=== PATIENT | female | born 1930 | race African-American/Black ===

== ENCOUNTER 2016-07-20 10:21 | Inpatient (IN) ==
[2016-07-20] MEDS ORDERED: SODIUM CHLORIDE 0.9% 500 ML IV STA (10:55)
--- NOTE | 2016-07-20 11:04 | Emergency Department Note ---
Murray Hemphill Mantricia, am scribing for, and in the presence of, Randolph Daley MD 11:02. Edi Hemphill Charles R, MD, personally performed the services described in this documentation, ascribed by Fidel Gao in my presence, and it is both accurate and complete . Arrival - Arrival Chief Complaint: Altered Mental Status Stated Complaint: Altered LOC ED Nursing Triage Note: Brought in by EMS c/o altered LOC-onset three days ago, worse today. Patient has been being treated for a UTI. Mode of Arrival: Stretcher Limitations: Altered Mental Status Source: Family (Daughter) Time Seen by Provider: 07/20/16 10:41 - History of Present Illness HPI Narrative: Pt is an 86 y/o black female arriving to ED by EMS with c/o AMS that onset a week ago. Daughter states that pt has been confused and nonresponsive for about a week now. She also states that pt falls asleep during conversation and is unable to wake up for more than a few seconds. Pt is being treated for a sever UTI and is still on antibiotics. Pt has a PMHx of dementia and brain hemorrhage but denies DM. Daughter reports that pt had a chest x-ray about a week ago and did not have fluid on her lungs; however, daughter reports thick yellow sputum when coughing. Pt's PCP is Dr. Gurrola. No other complaints were reported to ED. Onset (ago): week(s) Consistency: constant Severity: mild Date of Last Menstrual Period: menopause Allergies/Adverse Reactions: Allergies Allergy/AdvReac Type Severity Reaction Status Date / Time Sulfa (Sulfonamide Allergy Mild RASH Verified 05/27/14 04:47 Antibiotics) Home Medications: Home Medications Medication Instructions Recorded Confirmed Type Albuterol Inhaler [Proventil 2 puff INH TID 05/27/14 05/27/14 History Inhaler] Ca/D3/Mag/Zinc/Javad/Jamie/Mgbor 1 each PO DAILY 05/27/14 05/27/14 History [Caltrate 600+D3+Min Chew Tab] Cholecalciferol (Vitamin D3) 1,000 unit PO DAILY 05/27/14 05/27/14 History [Vitamin D3] Donepezil [Aricept] 10 mg PO BEDTIME 05/27/14 05/27/14 History Fluticasone 50 Mcg Nasal Oxbow 1 spray BOTH NARES BID 05/27/14 05/27/14 History [Flonase] Furosemide Tab [Lasix Tab] 20 mg PO QOTHER DAY 05/27/14 05/27/14 History Potassium Chloride [Klor-Con 8] 8 meq PO QOTHER DAY 05/27/14 05/27/14 History amLODIPine [Norvasc] 5 mg PO ONCE 05/27/14 05/27/14 History Albuterol Neb [Proventil Neb] 2.5 mg RESP TX RT QID neb 06/06/14 Rx Ziprasidone Cap [Geodon Cap] 20 mg PO BID capsule 06/06/14 Rx Review of System - Review of System 12 point system: reviewed and no additional remarkable complaints except as stated - Review of System Constitutional: Present: other (AMS for a week). Absent: chills, diaphoresis, fever Eyes: Absent: discharge, pain, redness Head/Ears/Nose/Throat: Absent: earache, epistaxis Respiratory: Absent: cough, respiratory distress, wheezing Cardiovascular: Absent: chest pain, dyspnea on exertion Gastrointestinal: Absent: abdominal pain, nausea, vomiting, diarrhea Genitourinary female: Absent: abnormal menses, dysuria Musculoskeletal: Absent: arm pain, back pain, leg pain, neck pain Skin: Absent: rash, lesions Neurological: Absent: headache, weakness Psychiatric: Absent: anxiety, depression Medical,Surgical,& Family Hx - Medical History Cardio: History of: Hypertension Neurology: History of: Dementia Endocrine: No history of: Diabetes Mellitus (NIDDM) Respiratory: History of: Respiratory Problems (former smoker) Gastrointestinal: History of: GERD - Social History Smoking Status: Former smoker Frequency of Alcohol Use: None Type of Drug Use: None Exam Vital Signs: Vital Signs Temperature 96.5 F L 07/20/16 10:30 Pulse Rate 64 07/20/16 10:30 Respiratory Rate 21 07/20/16 10:30 Blood Pressure 132/64 07/20/16 10:30 O2 Sat by Pulse Oximetry 98 07/20/16 10:30 - General General appearance: in no apparent distress, other (confused; slurred speech) - Head Head exam: Present: atraumatic, normocephalic, normal inspection, other (no facial droop features) - Eye Eye exam: Present: normal appearance, PERRL, EOMI - ENT ENT exam: Present: normal exam, normal oropharynx, mucous membranes moist, TM's normal bilaterally, normal external ear exam - Neck Neck exam: Present: normal inspection, full ROM, trachea midline. Absent: tenderness - Chest Chest inspection: Present: normal inspection, symmetric chest wall rise. Absent : tenderness - Respiratory Respiratory exam: Present: normal lung sounds bilaterally - Cardiovascular Cardiovascular exam: Present: regular rate, normal rhythm, normal heart sounds - Abdominal Exam Abdominal exam: Present: soft, normal bowel sounds. Absent: distention, tenderness, guarding, rebound - Extremities Exam Extremities exam: Present: full ROM, normal capillary refill, other (+2 LE edema bilat but more noticed on RLE). Absent: tenderness - Back Exam Back exam: Present: normal inspection, full ROM. Absent: tenderness - Neurological Exam Neurological exam: Present: alert, oriented X3, CN II-XII intact, reflexes normal - Psychiatric Psychiatric exam: Present: normal affect, normal mood - Skin Skin exam: Present: warm, dry, intact, normal color Course - Consultations Consultation #1: Hospitalist will admit patient Time: 12:53 Results - Labs CBC & BMP: 07/20/16 11:35 07/20/16 11:35 Lab Results: I have reviewed the patients labs Labs: Laboratory Tests 07/20/16 07/20/16 07/20/16 10:55 11:35 11:35 WBC 15.9 H MCV 85.6 L Neut % (Auto) 74.1 H Lymph % (Auto) 10.5 L Neut # (Auto) 11.8 H Eos # (Auto) 1.2 H Lymphocytes 11 L Sodium 147 H Chloride 110 H Anion Gap 16.2 H BUN 45 H Creatinine 1.30 H BUN/Creatinine Ratio 34.00 H Glucose 229 H Calculated Osmolality 310.4 H Magnesium 2.8 H Total Bilirubin 1.40 H AST 45 H ALT 65 H Alkaline Phosphatase 267 H Total Protein 4.6 L Albumin 1.9 L Albumin/Globulin Ratio 0.7 L Urine Urobilinogen 2.0 H - Diagnostic Findings Procedure: Chest x-ray: report reviewed by me (No acute cardiopulmonary process is identified. ), CT: report reviewed by me (Head: No acute intracranial abnormality demonstrated. Probable chronic microvascular ischemic change and volume loss. Interval placement of 2 doron holes within the right frontal calvarium with interval resolution of extra-axial hemorrhage. ) Disposition Clinical Impression: Fatigue, Altered mental status, Confused, Debilitated patient, Anorexia, Hypoalbuminemia, Dementia, Bronchitis, Leukocytosis Case discussed with: patient, patient's family Disposition: Still a Patient Condition: Stable Time of Disposition: 12:54
--- NOTE | 2016-07-20 11:13 | CT Report ---
CT head/brain wo con Indication: Mental status changes Comparison: CT brain dated June 20, 2016 Technique: Multiple axial tomographic images of the brain were obtained without the use of intravenous contrast. Findings: Moderate global volume loss. Marked periventricular and subcortical hypoattenuation noted which is nonspecific but consistent with chronic microvascular ischemic change. No acute intracranial hemorrhage or significant midline shift. Interval placement of 2 doron holes within the right frontal calvarium with interval resolution of extra-axial hemorrhage. Paranasal sinuses and mastoid air cells are clear. IMPRESSION: No acute intracranial abnormality demonstrated. Probable chronic microvascular ischemic change and volume loss. Interval placement of 2 doron holes within the right frontal calvarium with interval resolution of extra-axial hemorrhage. The CT exam was performed using one or more of the following dose reduction techniques: Automated exposure control, adjustment of the mA and/or kV according to patient size, or use of iterative reconstruction technique. PROCEDURE INTERPRETED AT [facility] DEPARTMENT OF RADIOLOGY Final Report Signed by: Dr Raul Ivory
--- NOTE | 2016-07-20 11:16 | XRay Report ---
Referring Physician: Randolph Daley Exam: XR chest 1V portable Date: July 20, 2016 at 11:05 AM Reason: Altered mental status Comparison: Chest one view portable June 06, 2014 Findings: The cardiac silhouette is upper normal in size. No focal consolidation, pneumothorax or pleural effusion is identified. No acute osseous process is seen. Impression: No acute cardiopulmonary process is identified. PROCEDURE INTERPRETED AT [facility] DEPARTMENT OF RADIOLOGY Final Report Signed by: Dr. Jesenia Heard
[2016-07-20 11:48] LABS: Basophils # 0.1 10*3/uL (0.0-0.2); Basophils % 0.4 % (0.0-0.8); Eosinophils # 1.2 10*3/uL (0.0-0.87); Eosinophils % 7.2 % (0.00-10.9); Hematocrit 39.2 VOL% (35.7-47.0); Hemoglobin 13.7 GM/DL (12.0-16.0); Immature Granulocytes % 5.3 %; Immature Granulocytes Absolute 0.84 #; Lymphocytes # 1.7 10*3/uL (1.4-4.0); Lymphocytes % 10.5 % (21.3-54.2); Mean Corpuscular HGB Conc 34.9 GM/DL (32-36); Mean Corpuscular Hemoglobin 30 PG (27-34); Mean Corpuscular Volume 85.6 FL (87-102); Mean Platelet Volume 11.2 FL (9.6-12.0); Monocytes # 0.4 10*3/uL (0.11-0.8); Monocytes % 2.5 % (1.7-12.7); Neutrophils # 11.8 10*3/uL (1.4-7.4); Neutrophils % 74.1 % (38.7-73.9); Platelet Count 181 T/CUMM (130-400); Red Blood Count 4.58 MC/CUMM (3.8-5.5); Red Cell Distribution Width 15.9 % (9.3-17.3); White Blood Count 15.9 T/CUMM (4-12)
[2016-07-20 11:57] LABS: INR 1.2; PT Patient Result 12.4 SECS
[2016-07-20 12:12] LABS: Band Neutrophils 2 % (0-10); Eosinophils 6 % (0-10); Hypochromasia 1+; Lymphocytes 11 % (20-55); Platelet Estimate Normal; Segmented Neutrophils 75 % (50-85); Total Cells Counted 100
[2016-07-20 12:19] LABS: Ammonia 12 UMOL/L (11-32)
[2016-07-20 12:22] LABS: Alanine Aminotransferase 65 U/L (13-56); Albumin 1.9 G/DL (3.4-5.0); Alkaline Phosphatase 267 U/L (45-117); Aspartate Amino Transferase 45 U/L (0-37); Blood Urea Nitrogen 45 MG/DL (7-18); Calcium 8.8 MG/DL (8.5-10.1); Glucose 229 MG/DL (74-106); Magnesium 2.8 MG/DL (1.8-2.4); Osmolality,Calculated 310.4 MOS/KG (273-304); Potassium 4.2 MMOL/L (3.5-5.1); Sodium 147 MMOL/L (136-145); Total Protein 4.6 G/DL (6.4-8.3); Troponin I Only < 0.015 NG/ML (0.00-0.045)
[2016-07-20 12:24] LABS: Amorphous Crystals,Urine Occasional /HPF (Few); Apearance,Urine Slightly Hazy (Clear); Bacteria,Urine Occasional /HPF (Few); Bilirubin,Urine Negative (Negative); Blood, Urine Negative (Negative); Glucose,Urine (UA) Negative (Negative); Ketones,Urine Negative (Negative); Nitrite,Urine Negative (Negative); Protein,Urine Negative; RBC,Urine 1 /HPF (0-4); Squamous Epithelial Cell,Urine Occasional /HPF (0-10); Urine Color Amber (Yellow); Urine Specific Gravity 1.015 (1.001-1.035); WBC,Urine 3 /HPF (0-6)
[2016-07-20] MEDS ORDERED: cefTRIAXone 1,000 MG in SODIUM CHLORIDE 0.9% 100 ML IV STA (12:54)
[2016-07-20 12:58] LABS: Sedimentation Rate-Westergren 66 MM/HR (0-30)
[2016-07-20] MEDS ORDERED: cefTRIAXone 1,000 MG VIAL ONE (13:18)
--- NOTE | 2016-07-20 14:30 | EKG Report ---
Stationary ECG Study [facility] ER Test Date: 07/20/2016 2:19:01 PM Pat Name: PIA YOON Department: Room: Gender: F Instrumentation Technician: EVERTON : 1930 Requested by: Randolph Morrison Order Number: [id number] Reading MD: JAKI BARTLETT Intervals [place] Rate: 65 P: 40 MO: 145 QRS: 17 QRSD: 78 T: 52 QT: 405 QTc: 417 Interpretive Statements SINUS RHYTHM WITH OCCASIONAL ECTOPIC PREMATURE COMPLEXES NONSPECIFIC T-WAVE ABNORMALITY Electronically Signed On 07-20-16 21:58:58 CDT by JAKI BARTLETT [email or web address]
[2016-07-20] MEDS ORDERED: ACETAMINOPHEN 325 MG TABLET PO PRN (14:32)
--- NOTE | 2016-07-20 16:07 | Hospitalist History & Physical ---
Assessment and Plan (1) Altered mental status Status: Acute Assessment and plan: Pt. admitted to monitored bed. Blood cultures pending. CT negative. Vit B12 ordered. TSH ordered. Ammonia normal. MRI in am after hydration. Current Visit: Yes (2) Hypoalbuminemia Status: Acute Assessment and plan: Consult dietary. Current Visit: Yes (3) Leukocytosis Status: Acute Assessment and plan: Start IV antibiotics (Rocephin and Vanc). Repeat labs in am. Blood cultures pending. UA negative. CXR unremarkable. Current Visit: Yes (4) Acute renal failure Status: Acute Assessment and plan: IVF at 75ml/ hr. Recheck labs in am. Avoid nephrotoxic agents. 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 Cortés is a 86 year old black female with a history of htn, subdural hematoma, pneumonia, and dementia that was brought into the ED via EMS for evaluation of altered mental status. Pt's daughter is at bedside and provides a history of her mother's current state. She states that her mother has been very lethargic for the last week and has become increasingly confused. Pt is also reported to fall asleep during conversation and not respond for several seconds. The patient was recently treated for cough and congestion as well as a severe UTI at the half-way and was still on antibiotics. Pt.'s daughter confirms thick green and yellow sputum production. Pt. is oriented only to self in ED. No other complaints noted at this time. The patient's case has been discussed with Dr. Greenfield and the patient will be admitted for further evaluation and treatment. Home Medications Medication Instructions Recorded Confirmed Type Donepezil [Aricept] 10 mg PO 199905/27/14 07/20/16 History Furosemide Tab [Lasix Tab] [place] [address]/27/14 07/20/16 History amLODIPine [Norvasc] 5 [place] 79905/27/14 07/20/16 History Acetaminophen Tab [Tylenol Tab] 650 mg PO Q4H PRN 07/20/16 07/20/16 History Albuterol Neb [Proventil Neb] 2.5 mg RESP TX Q4H PRN 07/20/16 07/20/16 History Calcium (Carb)/Vit D 600-400 [place] [address]/20/16 07/20/16 History [Caltrate 600 + D] Cetirizine Tab [ZyrTEC Tab] 10 mg PO 0807/20/16 07/20/16 History Memantine [Namenda] 10 mg PO BID@0800,159907/20/16 07/20/16 History Montelukast Tab [Singulair Tab] [place] [address]07/20/16 07/20/16 History Naproxen Sodium [Aleve] [place] [address]/20/16 07/20/16 History Nitrofurantoin Monohyd/M-Cryst 100 mg PO BID@0800,159907/20/16 07/20/16 History [Nitrofurantoin [place]-Mcr 100 mg] Pot[place] [address]/20/16 07/20/16 History guaiFENesin [Mucinex] 600 mg PO BID@0800,199907/20/16 07/20/16 History risperiDONE [Risperidone] 0.25 mg PO BID@0800,199907/20/16 07/20/16 History Allergies Allergy/AdvReac Type Severity Reaction Status Date / Time Sulfa (Sulfonamide Allergy Mild RASH Verified 05/27/14 04:47 Antibiotics) Medical,Surgical,& Family Hx - Medical History Cardio: History of: Hypertension Neurology: History of: Dementia Endocrine: No history of: Diabetes Mellitus (NIDDM) Respiratory: History of: Respiratory Problems (former smoker) Gastrointestinal: History of: GERD - Social History Smoking Status: Former smoker Frequency of Alcohol Use: None Type of Drug Use: None Marital Status: Lives With:: at half-way Functional capacity: wheelchair bound ROS unobtainable: due to mental status (pt's daughter was at bedside and provided information for patient) - Constitutional Constitutional: Present: daytime sleepiness, weakness - EENT Ears: Present: decreased hearing Nose, mouth and throat: Present: headache(s) - Cardiovascular Cardiovascular: Present: edema - Respiratory Respiratory: Present: cough, dyspnea on exertion - Gastrointestinal Gastrointestinal: Absent: abdominal pain - Neurological Neurological: Present: behavioral changes, confusion - Psychiatric Psychiatric: Present: confusion, memory loss Exam - Constitutional Vitals: Period Temp Pulse Resp BP Sys/Shannon Pulse Ox Last 24 Hr 96.5 F-96.5 F 62-64 18-21 132-132/64-64 98 General appearance: no acute distress - Head Head exam: Present: normal inspection, normocephalic - Eye Eye exam: Present: EOMI. Absent: periorbital swelling Pupils: Present: ADAMARIS. Absent: dilated - Respiratory Respiratory exam: Present: clear to auscultation bilaterally. Absent: wheezes - Cardiovascular Cardiovascular exam: Present: irregular rhythm. Absent: regular rate and rhythm - GI/Abdominal GI/Abdominal exam: Present: normal bowel sounds, soft. Absent: tenderness - Extremities Exam Extremities exam: Present: normal capillary refill, full ROM, edema - Neurological Exam Neurological exam: Present: altered. Absent: alert, oriented X3 - Psychiatric Psychiatric exam: Present: flat affect - Skin Skin exam: Present: normal color, warm, dry Results - Labs CBC & BMP: 07/20/16 11:35 07/20/16 11:35 Lab Results: I have reviewed the past 24 hour labs
[2016-07-20] MEDS ORDERED: VANCOMYCIN INJ 1,000 MG in SODIUM CHLORIDE 0.9% 250 ML IV STA (16:12)
[2016-07-20 16:14] LABS: Barbiturates Screen,Urine Negative (Negative); Benzodiazepines Screen,Urine Negative (Negative); Cannabinoid Screen,Urine Negative (Negative); Opiate Screen,Urine Negative (Negative); Phencyclidine Screen,Urine Negative (Negative)
[2016-07-20 17:01] LABS: Bilirubin,Direct 0.9 MG/DL (0.0-0.20); Bilirubin,Indirect 0.4 MG/DL (0.0-1.0); Bilirubin,Total 1.3 MG/DL (0.2-1.0); Total Protein 4.7 G/DL (6.4-8.3)
[2016-07-20] MEDS: DEXTROSE 5% NACL 0.45% 1,000 ML IV SCH (18:46)
--- NOTE | 2016-07-20 21:34 | Ultrasound Report ---
US venous doppler LE BI Indication: Lower extremity swelling and pain. Comparison: None. Technique: Using a transcutaneous probe, grayscale, spectral Doppler, and color Doppler images of the bilateral lower extremity venous structures were captured and stored. Grayscale images prior to and following compression were obtained. Interrogated venous structures include the bilateral common femoral vein, superficial femoral vein (proximal, mid, and distal), and popliteal vein. Findings: There is no evidence of thrombus within the interrogated venous structures. the interrogated venous segments demonstrate presence of both color flow and spectral flow. Impression: 1. No evidence of venous thrombosis. 07/20/2016 9:31 PM PROCEDURE INTERPRETED AT [facility] DEPARTMENT OF RADIOLOGY Final Report Signed by: Dr. Idris Monet
[2016-07-20] MEDS: cefTRIAXone 2,000 MG in SODIUM CHLORIDE 0.9% 100 ML IV SCH (23:49)
[2016-07-21 06:34] LABS: Calcium 8.2 MG/DL (8.5-10.1); Magnesium 2.5 MG/DL (1.8-2.4); Osmolality,Calculated 316.7 MOS/KG (273-304); Potassium 3.6 MMOL/L (3.5-5.1); Risk Ratio 10.63; Thyroid Stimulating Hormone 1.33 uIU/ml (0.358-3.74); VLDL CHOLESTEROL 41.4 MG/DL
[2016-07-21 06:47] LABS: Basophils # 0.1 10*3/uL (0.0-0.2); Basophils % 0.4 % (0.0-0.8); Eosinophils # 1.2 10*3/uL (0.0-0.87); Eosinophils % 7.4 % (0.00-10.9); Hematocrit 33.6 VOL% (35.7-47.0); Hemoglobin 11.8 GM/DL (12.0-16.0); Immature Granulocytes % 7.1 %; Immature Granulocytes Absolute 1.16 #; Lymphocytes # 1.7 10*3/uL (1.4-4.0); Lymphocytes % 10.1 % (21.3-54.2); Mean Corpuscular HGB Conc 35.1 GM/DL (32-36); Mean Corpuscular Hemoglobin 30 PG (27-34); Mean Corpuscular Volume 84.6 FL (87-102); Mean Platelet Volume 11.2 FL (9.6-12.0); Monocytes # 0.5 10*3/uL (0.11-0.8); Monocytes % 3.2 % (1.7-12.7); Neutrophils # 11.7 10*3/uL (1.4-7.4); Neutrophils % 71.8 % (38.7-73.9); Platelet Count 165 T/CUMM (130-400); Red Blood Count 3.97 MC/CUMM (3.8-5.5); Red Cell Distribution Width 15.6 % (9.3-17.3); White Blood Count 16.3 T/CUMM (4-12)
[2016-07-21 07:19] LABS: Band Neutrophils 10 % (0-10); Eosinophils 11 % (0-10); Hypochromasia Slight; Lymphocytes 11 % (20-55); Macrocytosis 1+; Myelocytes 2 %; Platelet Estimate Adequate; Segmented Neutrophils 66 % (50-85); Total Cells Counted 100
[2016-07-21] MEDS: DEXTROSE 5% NACL 0.45% 1,000 ML IV SCH (11:06)
--- NOTE | 2016-07-21 12:19 | Neurology Consult Note ---
History of Present Illness History of present illness: Ms. Cortés is a 86 year old -[place] lady with a history of htn, subdural hematoma, pneumonia, and dementia that was brought into the ED via EMS for evaluation of altered mental status. Patient is at [facility]. Pt's daughter is at bedside and provides a history of her mother's current state. She states that her mother has been very lethargic for the last week and has become increasingly confused. Pt is also reported to fall asleep during conversation and not respond for several seconds. The patient was recently treated for cough and congestion as well as a severe UTI at the retirement and was still on antibiotics. Pt.'s daughter reported that she has been spitting out thick green and yellow sputum production. She was started on antibiotic and she is more alert and awake and following commands. She ate good breakfast this morning. No other complaints noted at this time. She was found to have high W BC count and high serum sodium level. She also has history of subdural hematoma status post bur hole surgery in the past as per CT report. CT does not reveal any other acute pathology. Home Medications Medication Instructions Recorded Confirmed Type Donepezil [Aricept] 10 mg PO 199905/27/14 07/20/16 History Furosemide Tab [Lasix Tab] 20 mg PO 0800 05/27/14 07/20/16 History amLODIPine [Norvasc] 5 mg PO 0800 05/27/14 07/20/16 History Acetaminophen Tab [Tylenol Tab] 650 mg PO Q4H PRN 07/20/16 07/20/16 History Albuterol Neb [Proventil Neb] 2.5 mg RESP TX Q4H PRN 07/20/16 07/20/16 History Calcium (Carb)/Vit D 600-400 1 tablet PO 0800 07/20/16 07/20/16 History [Caltrate 600 + D] Cetirizine Tab [ZyrTEC Tab] 10 mg PO 0800 07/20/16 07/20/16 History Memantine [Namenda] 10 mg PO BID@0800,1600 07/20/16 07/20/16 History Montelukast Tab [Singulair Tab] 10 mg PO 0800 07/20/16 07/20/16 History Naproxen Sodium [Aleve] 220 mg PO 0800 07/20/16 07/20/16 History Nitrofurantoin Monohyd/M-Cryst 100 mg PO BID@0800,1600 07/20/16 07/20/16 History [Nitrofurantoin [place]-Mcr 100 mg] Potassium Chloride 10 meq PO 0807/20/16 07/20/16 History guaiFENesin [Mucinex] 600 mg PO BID@0800,199907/20/16 07/20/16 History risperiDONE [Risperidone] 0.25 mg PO BID@0800,199907/20/16 07/20/16 History Allergies Allergy/AdvReac Type Severity Reaction Status Date / Time Sulfa (Sulfonamide Allergy Mild RASH Verified 05/27/14 04:47 Antibiotics) 12 point system: reviewed and no additional remarkable complaints except as stated Medical,Surgical,& Family Hx - Medical History Cardio: History of: Hypertension Neurology: History of: Dementia Endocrine: No history of: Diabetes Mellitus (NIDDM) Respiratory: History of: Respiratory Problems (former smoker) Gastrointestinal: History of: GERD - Social History Smoking Status: Former smoker Frequency of Alcohol Use: None Type of Drug Use: None Exam - Constitutional Vitals: Period Temp Pulse Resp BP Sys/Shannon Pulse Ox Last 24 Hr 96.5 F-98.4 F 61-88 14-23 111-173/47-81 94-98 Exam: GENERAL: Patient is in no acute distress. NECK: Neck is supple. There is no JVD. No carotid bruits present. No thyroid masses. CVS: First and second heart sounds are normal. There is no S3 present. Regular rate and rhythm. RESPIRATORY: Lungs are clear to auscultation without any rales or rhonchi. ABDOMEN: Soft and non-tender. Bowel sounds are present. There is no hepatosplenomegaly. EXT: There is no palpable edema. Peripheral pulses are present. Skin: No rashes Central Nervous system: General: Alert, awake Speech: Fluent Comprehension: Fair Facial expressions: Normal Cranial Nerves: CN1/Olfactory: Normal CN II/ Optic: Normal, Visual [place] unreliable CN III, and : ADAMARIS & EOMI CN V: Normal & intact CN VII: face is symmetric CNVIII: Normal CN XI/X/XI/XII: Intact and Normal Motor: Bulk and Tone is normal. Strength in the right 2-3/5 Strength in the left 2-3/5 Sensory: Unreliable Reflexes: 1+ and symmetrical Cerebellar function: Slow finger to nose and heel to prather testing. Toes: Equivocal Gait: Cannot be tested at this time Results - Labs CBC & BMP: 07/21/16 04:00 07/21/16 04:00 Assessment and Plan (1) Encephalopathy Status: Acute Assessment and plan: This is likely multifactorial. Differential would include infectious/metabolic encephalopathy. I would like to hold off to any further neurological intervention at this time and watch her closely She is responding to antibiotic well and improving. Thank you for the consult Current Visit: Yes
--- NOTE | 2016-07-21 13:21 | Hospitalist Progress Note ---
Assessment and Plan (1) Hyperosmolality and hypernatremia Status: Acute Assessment and plan: Patient will be receiving quarter normal saline at 100 mL/h repeat a BMP magnesium in the morning. Current Visit: Yes (2) Cellulitis of right leg Status: Acute Assessment and plan: Patient is on vancomycin and ceftriaxone. Check antistreptolysin antibodies. May have to add clindamycin for super antigen mitigation. Assist the patient in the morning. Current Visit: Yes (3) Leukocytosis Status: Acute Assessment and plan: Repeat CBC in the morning Current Visit: Yes Hospitalist: Subjective Interval history: Patient is seen interviewed and examined chart has been reviewed. Patient is able to communicate this morning. She does have a baseline dementia but appropriately responsive follows commands. Admitted yesterday with acute on chronic mental status change that had been going on for about a week. So obvious this morning that this patient does have hyponatremia and hyperglycemia. Her osmolality is increased at least calculated finger. Patient does have nonketotic hyperosmolar state; she also has elevated white count. Exam - Constitutional Vitals: Period Temp Pulse Resp BP Sys/Shannon Pulse Ox Last 24 Hr 97.7 F-98.7 F 61-88 14-23 111-173/47-69 94-98 General appearance: normal weight - Head Head exam: Present: normal inspection, normocephalic - Eye Eye exam: Present: EOMI Pupils: Present: ADAMARIS - ENT ENT exam: Present: normal exam - Neck Neck exam: Present: normal inspection - Respiratory Respiratory exam: Present: clear to auscultation bilaterally - Cardiovascular Cardiovascular exam: Present: regular rate and rhythm - GI/Abdominal GI/Abdominal exam: Present: normal bowel sounds, soft - Extremities Exam Extremities exam: Present: full ROM - Back Exam Back exam: Present: normal inspection - Neurological Exam Neurological exam: Present: alert, oriented X3, CN II-XII intact - Psychiatric Psychiatric exam: Present: normal affect - Skin Skin exam: Present: normal color, warm, dry Results - Labs CBC & BMP: 07/21/16 04:00 07/21/16 04:00 Lab Results: I have reviewed the past 24 hour labs (Noted an increase in white count of 16,300. This patient does have a total right leg cellulitis. In talking to her doctor today she she was reminded that the next 5 to a few days ago this patient did have a scratch in the back of her right lower extremity my suspicion that that may have driven cellulitis.)
[2016-07-21] MEDS ORDERED: ALBUTEROL 2.5 MG/3 ML NEB RESP TX PRN (13:31)
[2016-07-21] MEDS: VANCOMYCIN INJ 1,000 MG in SODIUM CHLORIDE 0.9% 100 ML IV SCH (13:45)
[2016-07-21] MEDS: SODIUM CHLORIDE 23.4% CONC INJ 38.5 MEQ in STERILE WATER INJ 1,000 ML IV SCH (13:45)
--- NOTE | 2016-07-21 14:08 | Magnetic Resonance Report ---
Exam: MR head/brain w and wo con Date: 07/21/2016 4:00 AM Comparison: CT brain 07/20/2016 Indication: Alteration of consciousness, confusion, memory loss Technique:[Multiple acquisitions were obtained including sagittal T1 scans before and after injection of 15 cc of Dotarem, coronal T1 scans with contrast, and axial ADC, diffusion, FLAIR, T2, GRE, and T1 scans before and after the injection on contrast. Scans were obtained on a 1.5 Samira magnet.] Findings: Scans are degraded by motion artifact. The ventricles are minimally dilated with no midline displacement. Partially empty sella with several tonsils normal in location. 12 mm area of restricted diffusion in the inferior medial left occipital lobe. No evidence of acute hemorrhage are recurrent extracerebral collection. 13 mm T2 hyperintensity in the extradural location in the right frontal lobe adjacent to the CT described doron hole. No definite adjacent extra-axial mass is identified on the coronal and sagittal scans. Diffuse atrophy and extensive FLAIR/T2 hyperintensities. Enlarged perivascular spaces are noted. No acute findings in the paranasal sinuses, orbits, temporal bones, [place], or venous sinuses. 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 Significant atrophy and microvascular disease with compensatory dilatation of the ventricles. T2 hyperintensities can also be associated with demyelinating disease, vasculitis, viral illness, etc. Area of signal alteration in the right frontal location which appears to be related to the doron hole rather than additional definite extra-axial lesion. Partially empty sella. PROCEDURE INTERPRETED AT [facility] DEPARTMENT OF RADIOLOGY Final Report Signed by: Dr. Alexandra Fontenot
[2016-07-21] MEDS: CLINDAMYCIN INJ 900 MG in PREMIX 1 EACH IV SCH ×2 (16:32→23:00)
[2016-07-21] MEDS: MEMANTINE 10 MG TABLET PO SCH (16:33)
[2016-07-21] MEDS: ASPIRIN EC 81 MG TABLET PO SCH (16:33)
[2016-07-21] MEDS: cefTRIAXone 2,000 MG in SODIUM CHLORIDE 0.9% 100 ML IV SCH (18:15)
[2016-07-21] MEDS: DONEPEZIL 10 MG TABLET PO SCH (20:38)
[2016-07-21] MEDS: risperiDONE 0.25 MG TABLET PO SCH (20:38)
[2016-07-22] MEDS: SODIUM CHLORIDE 23.4% CONC INJ 38.5 MEQ in STERILE WATER INJ 1,000 ML IV SCH ×3 (00:45→17:41)
[2016-07-22 03:53] LABS: Basophils # 0.1 10*3/uL (0.0-0.2); Basophils % 0.3 % (0.0-0.8); Eosinophils # 1.5 10*3/uL (0.0-0.87); Eosinophils % 8.3 % (0.00-10.9); Hemoglobin 10.9 GM/DL (12.0-16.0); Immature Granulocytes Absolute 2.37 #; Lymphocytes # 3.1 10*3/uL (1.4-4.0); Lymphocytes % 16.7 % (21.3-54.2); Mean Corpuscular HGB Conc 34.1 GM/DL (32-36); Mean Corpuscular Hemoglobin 29 PG (27-34); Mean Corpuscular Volume 85.8 FL (87-102); Mean Platelet Volume 11.5 FL (9.6-12.0); Monocytes # 1.1 10*3/uL (0.11-0.8); Monocytes % 5.7 % (1.7-12.7); NRBC # 0.03 10*3/uL; Neutrophils # 10.2 10*3/uL (1.4-7.4); Platelet Count 173 T/CUMM (130-400); Red Blood Count 3.73 MC/CUMM (3.8-5.5); White Blood Count 18.3 T/CUMM (4-12)
[2016-07-22 04:18] LABS: Calcium 7.7 MG/DL (8.5-10.1); Osmolality,Calculated 302.1 MOS/KG (273-304); Potassium 3.6 MMOL/L (3.5-5.1)
[2016-07-22] MEDS: cefTRIAXone 2,000 MG in SODIUM CHLORIDE 0.9% 100 ML IV SCH ×2 (05:04→19:13)
[2016-07-22 05:54] LABS: Band Neutrophils 3 % (0-10); Eosinophils 7 % (0-10); Lymphocytes 23 % (20-55); Metamyelocytes 5 %; Myelocytes 4 %; Platelet Estimate Normal; Promyelocytes 2 %; Segmented Neutrophils 55 % (50-85); Total Cells Counted 100
[2016-07-22] MEDS: CLINDAMYCIN INJ 900 MG in PREMIX 1 EACH IV SCH ×3 (06:00→22:13)
[2016-07-22] MEDS: CALCIUM (CARBONATE)/VITAMIN D 600 MG-400 UNIT TABLET PO SCH (09:04)
[2016-07-22] MEDS: ASPIRIN EC 81 MG TABLET PO SCH (09:04)
[2016-07-22] MEDS: FUROSEMIDE 20 MG TABLET PO SCH (09:04)
[2016-07-22] MEDS: MONTELUKAST 10 MG TABLET PO SCH (09:04)
[2016-07-22] MEDS: amLODIPine 5 MG TABLET PO SCH (09:04)
[2016-07-22] MEDS: POTASSIUM CHLORIDE 10 MEQ TABLET PO SCH (09:05)
[2016-07-22] MEDS: CETIRIZINE 10 MG TABLET PO SCH (09:05)
[2016-07-22] MEDS: MEMANTINE 10 MG TABLET PO SCH ×2 (09:05→15:42)
[2016-07-22] MEDS: risperiDONE 0.25 MG TABLET PO SCH (09:20)
[2016-07-22] MEDS: VANCOMYCIN INJ 1,000 MG in SODIUM CHLORIDE 0.9% 100 ML IV SCH (09:20)
--- NOTE | 2016-07-22 12:18 | Hospitalist Progress Note ---
Assessment and Plan (1) Hyperosmolality and hypernatremia Status: Acute Assessment and plan: This is improving with a sodium low at 149. We will continue quarter normal saline at the same rate. Will reevaluate BMP and magnesium in the morning Current Visit: Yes (2) Cellulitis of right leg Status: Acute Assessment and plan: Patient is on vancomycin and ceftriaxone. Check antistreptolysin antibodies. May have to add clindamycin for super antigen mitigation. Current Visit: Yes (3) Leukocytosis Status: Acute Assessment and plan: Her white count keeps on going up and does have cellulitis with this should be covered with current antibiotic. We will continue to observe. Current Visit: Yes Hospitalist: Subjective Interval history: Patient has been seen interviewed and examined chart has been reviewed. Ms. Cortés is much more awake noncommunicating. The hospital unresponsive with the acute altered mental status. History of intracranial bleed status post evacuation sometime in the past. I am noticing continued elevation of white count sign of infection is the right lower extremity with cellulitis. Exam - Constitutional Vitals: Period Temp Pulse Resp BP Sys/Shannon Pulse Ox Last 24 Hr 97.1 F-98.2 F 57-75 17-20 112-131/50-60 92-96 General appearance: normal weight, no acute distress - Head Head exam: Present: normocephalic, atraumatic - Eye Eye exam: Present: EOMI, other (Patient has not complained of any loss of vision but could be lack of cognitive output. He has she has a new left inferomedial occipital lobe infarct.) Pupils: Present: ADAMARIS - ENT ENT exam: Present: normal exam - Neck Neck exam: Present: normal inspection - Respiratory Respiratory exam: Present: clear to auscultation bilaterally - Cardiovascular Cardiovascular exam: Present: regular rate and rhythm - GI/Abdominal GI/Abdominal exam: Present: normal bowel sounds, soft - Extremities Exam Extremities exam: Present: other (Cellulitis right lower extremity) - Neurological Exam Neurological exam: Present: other (And is arousable can answer questions takes a long term care administrator for elective answer no tell tale motor deficit.) - Psychiatric Psychiatric exam: Present: other (No acute changes) - Skin Skin exam: Present: warm, dry Results - Labs CBC & BMP: 07/22/16 02:53 07/22/16 02:53 Lab Results: I have reviewed the past 24 hour labs - Diagnostic Findings Procedure: MRI: image reviewed by me (See report)
[2016-07-22] MEDS: DONEPEZIL 10 MG TABLET PO SCH (20:12)
[2016-07-23] MEDS: SODIUM CHLORIDE 23.4% CONC INJ 38.5 MEQ in STERILE WATER INJ 1,000 ML IV SCH ×4 (01:53→22:07)
[2016-07-23] MEDS: cefTRIAXone 2,000 MG in SODIUM CHLORIDE 0.9% 100 ML IV SCH ×2 (05:17→17:45)
[2016-07-23] MEDS: CLINDAMYCIN INJ 900 MG in PREMIX 1 EACH IV SCH ×4 (06:13→22:08)
--- NOTE | 2016-07-23 09:15 | Hospitalist Progress Note ---
Assessment and Plan - Time spent with patient Time spent with patient: Less than 30 minutes (1) Hyperosmolality and hypernatremia Status: Acute Assessment and plan: Renal function electrolyte status continue to improve. Today's labs are currently pending. Will follow up and make adjustments as needed. Current Visit: Yes (2) Dementia Status: Chronic Assessment and plan: Currently stable. Current Visit: Yes (3) Encephalopathy Status: Acute Assessment and plan: Likely multifactorial in etiology. She is improving with correction of her metabolic abnormalities. Her cellulitis is also significantly improved. Continued treat underlying issues. MRI was performed and revealed a 12 mm acute ischemic area of the left occipital area. We will continue to treat medically. Current Visit: Yes (4) Cellulitis of right leg Status: Acute Assessment and plan: Much improved. Convert to oral antibiotics and follow-up WBCs. Current Visit: Yes (5) Acute renal failure Status: Acute Assessment and plan: Acute renal failure is improving with creatinine decreasing from 1.3 on admission to 0.8 yesterday. Laboratory studies from today are currently pending. Continue current medical therapy and avoidance of nephrotoxic insults or agents. 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 Will continue antiplatelet therapy, PT/OT/ST evaluation and care. Current Visit: Yes Hospitalist: Subjective Interval history: Patient is much more alert according to her family in the room. She is eating soft foods without difficulty. No new issues. Hopefully can consider discharge within the next 24-48 hours. Discussed with daughter in the room as well as another physician daughter over the phone. Exam - Constitutional Vitals: Period Temp Pulse Resp BP Sys/Shannon Pulse Ox Last 24 Hr 98.0 F-99.1 F 54-93 17-20 119-149/48-72 92-96 General appearance: no acute distress - Head Head exam: Present: normocephalic, atraumatic - Eye Eye exam: Present: EOMI Pupils: Present: ADAMARIS - ENT ENT exam: Present: normal exam - Neck Neck exam: Present: normal inspection - Respiratory Respiratory exam: Present: clear to auscultation bilaterally - Cardiovascular Cardiovascular exam: Present: regular rate and rhythm - GI/Abdominal GI/Abdominal exam: Present: normal bowel sounds, soft. Absent: mass, tenderness - Extremities Exam Extremities exam: Absent: calf tenderness, edema - Back Exam Back exam: Present: normal inspection - Neurological Exam Neurological exam: Present: alert, CN II-XII intact. Absent: motor sensory deficit - Skin Skin exam: Present: warm, dry. Absent: rash Results - Labs CBC & BMP: 07/22/16 02:53 07/22/16 02:53
[2016-07-23] MEDS: MONTELUKAST 10 MG TABLET PO SCH (09:35)
[2016-07-23] MEDS: POTASSIUM CHLORIDE 10 MEQ TABLET PO SCH (09:35)
[2016-07-23] MEDS: ASPIRIN EC 81 MG TABLET PO SCH (09:35)
[2016-07-23] MEDS: amLODIPine 5 MG TABLET PO SCH (09:35)
[2016-07-23] MEDS: CALCIUM (CARBONATE)/VITAMIN D 600 MG-400 UNIT TABLET PO SCH (09:36)
[2016-07-23] MEDS: CETIRIZINE 10 MG TABLET PO SCH (09:36)
[2016-07-23] MEDS: MEMANTINE 10 MG TABLET PO SCH ×2 (09:36→16:25)
[2016-07-23] MEDS: FUROSEMIDE 20 MG TABLET PO SCH (09:36)
[2016-07-23 09:49] LABS: Calcium 7.1 MG/DL (8.5-10.1)
[2016-07-23 09:50] LABS: Osmolality,Calculated 282.4 MOS/KG (273-304); Potassium 4.7 MMOL/L (3.5-5.1)
[2016-07-23] MEDS ORDERED: VANCOMYCIN INJ 1,500 MG in SODIUM CHLORIDE 0.9% 500 ML IV ONE (10:30)
[2016-07-23] MEDS: MYLANTA/LIDO VISC/NYST 180 ML BOTTLE SWISH/SWAL SCH (20:27)
[2016-07-23] MEDS: DONEPEZIL 10 MG TABLET PO SCH (20:27)
[2016-07-23] MEDS: VANCOMYCIN INJ 1,000 MG in SODIUM CHLORIDE 0.9% 250 ML IV SCH (21:16)
[2016-07-24 05:22] LABS: Basophils # 0.1 10*3/uL (0.0-0.2); Basophils % 0.4 % (0.0-0.8); Eosinophils # 1.3 10*3/uL (0.0-0.87); Hematocrit 33.2 VOL% (35.7-47.0); Hemoglobin 11.4 GM/DL (12.0-16.0); Immature Granulocytes % 17.6 %; Immature Granulocytes Absolute 3.66 #; Lymphocytes # 2.7 10*3/uL (1.4-4.0); Lymphocytes % 13.1 % (21.3-54.2); Mean Corpuscular HGB Conc 34.3 GM/DL (32-36); Mean Corpuscular Hemoglobin 29 PG (27-34); Mean Corpuscular Volume 85.3 FL (87-102); Mean Platelet Volume 10.9 FL (9.6-12.0); Monocytes # 1.1 10*3/uL (0.11-0.8); Monocytes % 5.3 % (1.7-12.7); NRBC # 0.03 10*3/uL; Neutrophils % 57.6 % (38.7-73.9); Platelet Count 198 T/CUMM (130-400); Red Blood Count 3.89 MC/CUMM (3.8-5.5); Red Cell Distribution Width 15.9 % (9.3-17.3); White Blood Count 20.8 T/CUMM (4-12)
[2016-07-24] MEDS: cefTRIAXone 2,000 MG in SODIUM CHLORIDE 0.9% 100 ML IV SCH ×2 (05:24→17:41)
[2016-07-24 05:51] LABS: Calcium 7.3 MG/DL (8.5-10.1); Potassium 4.1 MMOL/L (3.5-5.1)
[2016-07-24 06:02] LABS: Band Neutrophils 9 % (0-10); Eosinophils 6 % (0-10); Lymphocytes 23 % (20-55); Metamyelocytes 3 %; Myelocytes 3 %; Nucleated Red Blood Cells 1 (0-5); Platelet Estimate Normal; Segmented Neutrophils 52 % (50-85); Total Cells Counted 100
[2016-07-24] MEDS: CLINDAMYCIN INJ 900 MG in PREMIX 1 EACH IV SCH ×3 (06:02→23:16)
--- NOTE | 2016-07-24 08:45 | Hospitalist Progress Note ---
Assessment and Plan - Time spent with patient Time spent with patient: Less than 30 minutes (1) Hyperosmolality and hypernatremia Status: Acute Assessment and plan: Renal function electrolyte status continue to improve. Today's labs are currently pending. Will follow up and make adjustments as needed. 07/24/16: Continuing to follow electrolytes and make adjustments in fluid and electrolyte requirements on a daily basis. Discussed with daughter. Current Visit: Yes (2) Dementia Status: Chronic Assessment and plan: Currently stable. Current Visit: Yes (3) Encephalopathy Status: Acute Assessment and plan: Likely multifactorial in etiology. She is improving with correction of her metabolic abnormalities. Her cellulitis is also significantly improved. Continued treat underlying issues. MRI was performed and revealed a 12 mm acute ischemic area of the left occipital area. We will continue to treat medically. Current Visit: Yes (4) Cellulitis of right leg Status: Acute Assessment and plan: Much improved. Convert to oral antibiotics and follow-up WBCs. Current Visit: Yes (5) Acute renal failure Status: Acute Assessment and plan: Acute renal failure is improving with creatinine decreasing from 1.3 on admission to 0.8 yesterday. Laboratory studies from today are currently pending. Continue current medical therapy and avoidance of nephrotoxic insults or agents. 07/24/16: Continue current care. Creatinine down to 0.7. 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 Will continue antiplatelet therapy, PT/OT/ST evaluation and care. Current Visit: Yes (7) Leukocytosis Status: Acute Assessment and plan: Persistent leukocytosis without fever. Will reculture and reassess antibiotic coverage. Current Visit: Yes Hospitalist: Subjective Interval history: Patient is awake and alert. There has been no nausea, vomiting, diarrhea, chest pain, shortness of breath. She has had a mild cough without any sputum production. Appetite has been somewhat decreased. Discuss with her daughter at the bedside. Exam - Constitutional Vitals: Period Temp Pulse Resp BP Sys/Shannon Pulse Ox Last 24 Hr 97.2 F-99.2 F 52-60 16-20 117-127/45-55 91-100 Results - Labs CBC & BMP: 07/24/16 04:54 07/24/16 04:54 Lab Results: I have reviewed the past 24 hour labs
[2016-07-24] MEDS: CALCIUM (CARBONATE)/VITAMIN D 600 MG-400 UNIT TABLET PO SCH (08:47)
[2016-07-24] MEDS: MONTELUKAST 10 MG TABLET PO SCH (08:47)
[2016-07-24] MEDS: CETIRIZINE 10 MG TABLET PO SCH (08:47)
[2016-07-24] MEDS: ASPIRIN EC 81 MG TABLET PO SCH (08:47)
[2016-07-24] MEDS: MYLANTA/LIDO VISC/NYST 180 ML BOTTLE SWISH/SWAL SCH (08:47)
[2016-07-24] MEDS: MEMANTINE 10 MG TABLET PO SCH ×2 (08:47→17:41)
[2016-07-24] MEDS: POTASSIUM CHLORIDE 10 MEQ TABLET PO SCH (08:47)
[2016-07-24] MEDS: amLODIPine 5 MG TABLET PO SCH (08:47)
[2016-07-24] MEDS: FUROSEMIDE 20 MG TABLET PO SCH (08:59)
[2016-07-24] MEDS: DEXTROSE 5% 1,000 ML IV SCH ×2 (09:30→20:39)
[2016-07-24] MEDS: VANCOMYCIN INJ 1,000 MG in SODIUM CHLORIDE 0.9% 250 ML IV SCH ×2 (10:06→21:27)
[2016-07-24] MEDS: NYSTATIN 500,000 UNIT/5 ML UDCUP SWISH/SWAL SCH ×4 (10:07→20:41)
[2016-07-24 10:20] LABS: Apearance,Urine CLEAR (Clear); Bacteria,Urine Occasional /HPF (Few); Bilirubin,Urine Negative (Negative); Blood, Urine Negative (Negative); Glucose,Urine (UA) Negative (Negative); Ketones,Urine Negative (Negative); Mucus,Urine Occasional /LPF (Occasional); Nitrite,Urine Negative (Negative); Protein,Urine Negative; RBC,Urine <1 /HPF (0-4); Squamous Epithelial Cell,Urine Occasional /HPF (0-10); Urine Color Yellow (Yellow); Urine Urobilinogen < 2.0 EU/DL (0.2-1.0); WBC,Urine 1 /HPF (0-6)
--- NOTE | 2016-07-24 12:25 | XRay Report ---
History: Leukocytosis Date: 07/24/2016 Study: Chest x-ray AP portable Comparison exam: July 20, 2016 The cardiac silhouette is borderline prominent. The pulmonary vasculature is slightly prominent and ill-defined. The mediastinal contours are unchanged. There is patchy and hazy airspace disease in the mid to lower lung zones bilaterally, left more than right. There is also mild left more than right bilateral pleural effusion. Osseous structures are unchanged. There is mild to moderate thoracic spondylosis. Impression: There is evidence of CHF with pulmonary edema and mild bilateral pleural effusion. Superimposed pneumonia, especially in the left lung base, cannot be excluded by this exam alone PROCEDURE INTERPRETED AT [facility] DEPARTMENT OF RADIOLOGY Final Report Signed by: Dr. Grace Cummings
[2016-07-24] MEDS: FUROSEMIDE 40 MG/4 ML VIAL IV SCH (13:31)
--- NOTE | 2016-07-24 15:43 | ECHO Report ---
Leigh Cortés Exam Date: 07/24/2016 14:43 Referring Physician: Technologist: Jennifer Mendoza Age: 86 Ht (in): 63 Wt (lb): 165 Gender: F Exam Location: [facility] Echo Indications: altered mental status, acute renal failure, CVA, dementia, CHF, weakness BP: / HR: 54 Rhythm: bradycardia Technical Quality: Fair IMPRESSIONS Normal LV systolic and diastolic function, ejection fraction 60%. Mild concentric left ventricular hypertrophy. Mitral and aortic regurgitation. Moderate to severe tricuspid regurgitation. Mild pulmonary hypertension. Pulmonary artery pressures estimated at 43 mmHg. A pleural effusion is incidentally noted. MEASUREMENTS (Male / Female) Normal Values 2D ECHO LV Diastolic Diameter PLAX 3.6 cm 4.2 - 5.9 / 3.9 - 5.3 cm LV Systolic Diameter PLAX 1.9 cm LV Fractional Shortening PLAX 47.3 % IVS Diastolic Thickness 1.3 cm 0.6 - 1.0 / 0.6 - 0.9 cm LVPW Diastolic Thickness 1.2 cm 0.6 - 1.0 / 0.6 - 0.9 cm RV Internal Dim ED PLAX 2.6 cm Aortic Root Diameter 3.0 cm LA Systolic Diameter LX 3.3 cm 3.0 - 4.0 / 2.7 - 3.8 cm DOPPLER TR Peak Velocity 287.0 cm/s TR Peak Gradient 32.9 mmHg FINDINGS Left Ventricle Mildly increased septal wall thickness. Mildly increased posterior wall thickness. Mildly decreased left ventricular systolic function, left ventricular ejection fraction estimated at 60%. Right Ventricle Normal right ventricular size. Right Atrium Normal right atrial size. Left Atrium Normal left atrial size. Mitral Valve Mild mildly thickened mitral valve with mild mitral regurgitation. Aortic Valve Mild aortic valve sclerosis. There is mild aortic regurgitation. Tricuspid Valve Morphologically normal tricuspid valve. Moderate to severe tricuspid valve regurgitation. Tricuspid regurgitation velocities suggest a PAP of 43 mmHg. Pulmonic Valve Not well seen. Pericardium No pericardial effusion. + pleural effusion. Aorta Normal size aortic root and proximal ascending aorta. Betty Barclay MD (Electronically Signed) Final Date: 24 Jul 2016 15:42
[2016-07-24] MEDS: DONEPEZIL 10 MG TABLET PO SCH (20:40)
[2016-07-24] MEDS: DESITIN 4OZ/NYSTATIN 15 GRAM MIXTURE PASTE TOP SCH (20:41)
[2016-07-25] MEDS: DEXTROSE 5% 1,000 ML IV SCH (04:00)
[2016-07-25] MEDS: cefTRIAXone 2,000 MG in SODIUM CHLORIDE 0.9% 100 ML IV SCH (05:13)
[2016-07-25] MEDS: CLINDAMYCIN INJ 900 MG in PREMIX 1 EACH IV SCH ×3 (06:12→22:52)
[2016-07-25 06:33] LABS: Basophils % 0.2 % (0.0-0.8); Eosinophils # 1.4 10*3/uL (0.0-0.87); Eosinophils % 7.6 % (0.00-10.9); Hematocrit 33.3 VOL% (35.7-47.0); Hemoglobin 11.1 GM/DL (12.0-16.0); Immature Granulocytes % 17.1 %; Immature Granulocytes Absolute 3.07 #; Lymphocytes # 2.3 10*3/uL (1.4-4.0); Mean Corpuscular HGB Conc 33.3 GM/DL (32-36); Mean Corpuscular Hemoglobin 29 PG (27-34); Mean Platelet Volume 10.3 FL (9.6-12.0); Monocytes # 1.1 10*3/uL (0.11-0.8); Monocytes % 6.3 % (1.7-12.7); NRBC # 0.02 10*3/uL; Neutrophils % 55.8 % (38.7-73.9); Platelet Count 218 T/CUMM (130-400); Red Blood Count 3.87 MC/CUMM (3.8-5.5); Red Cell Distribution Width 15.9 % (9.3-17.3)
[2016-07-25 07:05] LABS: Albumin 1.7 G/DL (3.4-5.0); Bilirubin,Total 0.4 MG/DL (0.2-1.0); Calcium 7.2 MG/DL (8.5-10.1); Total Protein 4.6 G/DL (6.4-8.3)
[2016-07-25 07:06] LABS: Osmolality,Calculated 280.3 MOS/KG (273-304); Potassium 3.7 MMOL/L (3.5-5.1)
[2016-07-25 07:20] LABS: Band Neutrophils 4 % (0-10); Eosinophils 4 % (0-10); Hypochromasia 1+; Lymphocytes 19 % (20-55); Metamyelocytes 2 %; Microcytosis Slight; Myelocytes 2 %; Segmented Neutrophils 63 % (50-85); Total Cells Counted 100
[2016-07-25 07:21] LABS: Platelet Estimate Normal
--- NOTE | 2016-07-25 08:23 | Hospitalist Progress Note ---
Assessment and Plan - Time spent with patient Time spent with patient: Less than 30 minutes (1) Hyperosmolality and hypernatremia Status: Acute Assessment and plan: Renal function electrolyte status continue to improve. Today's labs are currently pending. Will follow up and make adjustments as needed. 07/24/16: Continuing to follow electrolytes and make adjustments in fluid and electrolyte requirements on a daily basis. Discussed with daughter. 07/25/16: Electrolytes and renal function is essentially normalized. We will continue hydration and continue to follow. Current Visit: Yes (2) Dementia Status: Chronic Assessment and plan: Currently stable. Current Visit: Yes (3) Encephalopathy Status: Acute Assessment and plan: Likely multifactorial in etiology. She is improving with correction of her metabolic abnormalities. Her cellulitis is also significantly improved. Continued treat underlying issues. MRI was performed and revealed a 12 mm acute ischemic area of the left occipital area. We will continue to treat medically. Current Visit: Yes (4) Cellulitis of right leg Status: Acute Assessment and plan: Much improved. Convert to oral antibiotics and follow-up WBCs. 07/25/16: Appears to have essentially resolved. Continuing IV antibiotic coverage. Current Visit: Yes (5) Acute renal failure Status: Acute Assessment and plan: Acute renal failure is improving with creatinine decreasing from 1.3 on admission to 0.8 yesterday. Laboratory studies from today are currently pending. Continue current medical therapy and avoidance of nephrotoxic insults or agents. 07/24/16: Continue current care. Creatinine down to 0.7. 07/25/16: Continuing current care and following renal function. 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 Will continue antiplatelet therapy, PT/OT/ST evaluation and care. Current Visit: Yes (7) Leukocytosis Status: Acute Assessment and plan: Persistent leukocytosis without fever. Will reculture and reassess antibiotic coverage. 07/25/16: Leukocytosis improving. She still remains afebrile. Chest x-ray findings noted. We will continue current antibiotic coverage which was adjusted yesterday. Current Visit: Yes (8) Pulmonary infiltrate Status: Acute Assessment and plan: Chest x-ray revealed signs consistent with possible CHF with bilateral small pleural effusions. There is also possibility of superimposed pneumonia in the left. Echocardiogram has been performed with results as noted normal ejection fraction and moderate to severe TR. We will continue current IV antibiotic coverage and follow her white count. Will diurese gently and follow-up chest x- ray. Current Visit: Yes Hospitalist: Subjective Interval history: Patient is awake and alert however patient's daughter states that she is not as perky today and seems to be sleeping more frequently. She denies any chest pain , shortness of breath or cough. Daughter is concerned that she has had weight gain and is retaining some fluid. Echo results as follows. Normal LV systolic and diastolic function, ejection fraction 60%. Mild concentric left ventricular hypertrophy. Mitral and aortic regurgitation. Moderate to severe tricuspid regurgitation. Mild pulmonary hypertension. Pulmonary artery pressures estimated at 43 mmHg. A pleural effusion is incidentally noted. Exam - Constitutional Vitals: Period Temp Pulse Resp BP Sys/Shannon Pulse Ox Last 24 Hr 97.6 F-98.7 F 50-64 16-20 124-137/52-66 91-98 General appearance: no acute distress - Head Head exam: Present: normocephalic, atraumatic - Eye Eye exam: Present: EOMI Pupils: Present: ADAMARIS - ENT ENT exam: Present: normal exam - Neck Neck exam: Present: normal inspection - Respiratory Respiratory exam: Present: clear to auscultation bilaterally. Absent: rales, rhonchi, wheezes - Cardiovascular Cardiovascular exam: Present: regular rate and rhythm - GI/Abdominal GI/Abdominal exam: Present: normal bowel sounds, soft. Absent: mass, tenderness - Extremities Exam Extremities exam: Absent: calf tenderness, edema - Neurological Exam Neurological exam: Present: alert, CN II-XII intact - Psychiatric Psychiatric exam: Present: normal affect, normal mood. Absent: agitated, anxious - Skin Skin exam: Present: warm, dry. Absent: erythema, rash Results - Labs CBC & BMP: 07/25/16 06:21 07/25/16 06:21 Lab Results: I have reviewed the past 24 hour labs - Diagnostic Findings Procedure: Chest x-ray: report reviewed by me (There is evidence of CHF with pulmonary edema and mild)
[2016-07-25] MEDS: amLODIPine 5 MG TABLET PO SCH (08:43)
[2016-07-25] MEDS: CETIRIZINE 10 MG TABLET PO SCH (08:43)
[2016-07-25] MEDS: NYSTATIN 500,000 UNIT/5 ML UDCUP SWISH/SWAL SCH ×4 (08:43→20:50)
[2016-07-25] MEDS: MONTELUKAST 10 MG TABLET PO SCH (08:43)
[2016-07-25] MEDS: CALCIUM (CARBONATE)/VITAMIN D 600 MG-400 UNIT TABLET PO SCH (08:43)
[2016-07-25] MEDS: POTASSIUM CHLORIDE 10 MEQ TABLET PO SCH ×3 (08:43→20:50)
[2016-07-25] MEDS: ASPIRIN EC 81 MG TABLET PO SCH (08:43)
[2016-07-25] MEDS: MEMANTINE 10 MG TABLET PO SCH ×2 (08:43→16:14)
[2016-07-25] MEDS: DESITIN 4OZ/NYSTATIN 15 GRAM MIXTURE PASTE TOP SCH ×2 (08:44→20:50)
[2016-07-25] MEDS: FUROSEMIDE 40 MG/4 ML VIAL IV SCH (08:44)
[2016-07-25] MEDS: LEVOFLOXACIN INJ 500 MG in PREMIX 1 EACH IV SCH (08:48)
[2016-07-25] MEDS: VANCOMYCIN INJ 1,000 MG in SODIUM CHLORIDE 0.9% 250 ML IV SCH ×2 (10:56→16:13)
--- NOTE | 2016-07-25 12:14 | Neurology Progress Note ---
Neurology - PN : Subjective Interval history: Patient seems to be doing fairly well. No new problems reported. She underwent MRI of the brain on 07/21/2016 which revealed a very tiny acute to subacute infarct in the left medial occipital lobe. Exam (Progress Note) - Constitutional Vitals: Period Temp Pulse Resp BP Sys/Shannon Pulse Ox Last 24 Hr 97.6 F-98.7 F 50-64 16-20 115-137/52-65 91-98 Exam: GENERAL: Patient is in no acute distress. NECK: Neck is supple. There is no JVD. No carotid bruits present. No thyroid masses. CVS: First and second heart sounds are normal. There is no S3 present. Regular rate and rhythm. RESPIRATORY: Lungs are clear to auscultation without any rales or rhonchi. ABDOMEN: Soft and non-tender. Bowel sounds are present. There is no hepatosplenomegaly. EXT: There is no palpable edema. Peripheral pulses are present. Skin: No rashes Central Nervous system: General: Alert, awake Speech: Fluent Comprehension: Fair Facial expressions: Normal Cranial Nerves: CN1/Olfactory: Normal CN II/ Optic: Normal, Visual Vieira unreliable CN III, and : ADAMARIS & EOMI CN V: Normal & intact CN VII: face is symmetric CNVIII: Normal CN XI/X/XI/XII: Intact and Normal Motor: Bulk and Tone is normal. Strength in the right 2-3/5 Strength in the left 2-3/5 Sensory: Unreliable Reflexes: 1+ and symmetrical Cerebellar function: Slow finger to nose and heel to prather testing. Toes: Equivocal Gait: Cannot be tested at this time Results - Labs CBC & BMP: 07/25/16 06:21 07/25/16 06:21 Assessment and Plan (1) Encephalopathy Status: Acute Assessment and plan: This is likely multifactorial. Differential would include infectious/metabolic encephalopathy. Current Visit: Yes (2) Acute CVA (cerebrovascular accident) Status: Acute Assessment and plan: Continue aspirin Add Plavix Continue PT and OT Current Visit: Yes
[2016-07-25] MEDS ORDERED: FUROSEMIDE 40 MG/4 ML VIAL IV ONE (16:00)
[2016-07-25] MEDS: DONEPEZIL 10 MG TABLET PO SCH (20:50)
[2016-07-26] MEDS: DEXTROSE 5% 1,000 ML IV SCH (02:06)
[2016-07-26] MEDS: CLINDAMYCIN INJ 900 MG in PREMIX 1 EACH IV SCH ×3 (06:02→22:36)
[2016-07-26 08:16] LABS: Basophils % 0.3 % (0.0-0.8); Eosinophils # 1.4 10*3/uL (0.0-0.87); Eosinophils % 9.1 % (0.00-10.9); Hematocrit 33.6 VOL% (35.7-47.0); Hemoglobin 11.5 GM/DL (12.0-16.0); Immature Granulocytes % 9.7 %; Immature Granulocytes Absolute 1.51 #; Lymphocytes # 2.3 10*3/uL (1.4-4.0); Mean Corpuscular HGB Conc 34.2 GM/DL (32-36); Mean Corpuscular Hemoglobin 29 PG (27-34); Mean Corpuscular Volume 85.7 FL (87-102); Mean Platelet Volume 10.1 FL (9.6-12.0); Monocytes # 1.3 10*3/uL (0.11-0.8); Monocytes % 8.6 % (1.7-12.7); Neutrophils # 8.9 10*3/uL (1.4-7.4); Neutrophils % 57.3 % (38.7-73.9); Platelet Count 228 T/CUMM (130-400); Red Blood Count 3.92 MC/CUMM (3.8-5.5); White Blood Count 15.6 T/CUMM (4-12)
[2016-07-26 08:45] LABS: Albumin 1.7 G/DL (3.4-5.0); Bilirubin,Total 0.5 MG/DL (0.2-1.0); Calcium 7.9 MG/DL (8.5-10.1); Magnesium 2.1 MG/DL (1.8-2.4)
[2016-07-26 08:46] LABS: Osmolality,Calculated 280.1 MOS/KG (273-304)
[2016-07-26 09:02] LABS: Hypochromasia 2+; Microcytosis 1+
[2016-07-26] MEDS: MONTELUKAST 10 MG TABLET PO SCH (09:15)
[2016-07-26] MEDS: CALCIUM (CARBONATE)/VITAMIN D 600 MG-400 UNIT TABLET PO SCH (09:15)
[2016-07-26] MEDS: ASPIRIN EC 81 MG TABLET PO SCH (09:15)
[2016-07-26] MEDS: POTASSIUM CHLORIDE 10 MEQ TABLET PO SCH ×2 (09:15→20:22)
[2016-07-26] MEDS: FUROSEMIDE 40 MG/4 ML VIAL IV SCH (09:16)
[2016-07-26] MEDS: NYSTATIN 500,000 UNIT/5 ML UDCUP SWISH/SWAL SCH ×4 (09:16→20:22)
[2016-07-26] MEDS: MEMANTINE 10 MG TABLET PO SCH ×2 (09:16→17:27)
[2016-07-26] MEDS: amLODIPine 5 MG TABLET PO SCH (09:16)
[2016-07-26] MEDS: CLOPIDOGREL 75 MG TABLET PO SCH (09:16)
[2016-07-26] MEDS: DESITIN 4OZ/NYSTATIN 15 GRAM MIXTURE PASTE TOP SCH ×2 (09:16→20:30)
[2016-07-26] MEDS: CETIRIZINE 10 MG TABLET PO SCH (09:16)
[2016-07-26] MEDS: LEVOFLOXACIN INJ 500 MG in PREMIX 1 EACH IV SCH (09:17)
[2016-07-26] MEDS: VANCOMYCIN INJ 1,000 MG in SODIUM CHLORIDE 0.9% 250 ML IV SCH (10:44)
--- NOTE | 2016-07-26 10:55 | Hospitalist Progress Note ---
Assessment and Plan (1) Cellulitis of right leg Status: Acute Assessment and plan: Erythema has improved; continue antibiotics as ordered. Current Visit: Yes (2) Leukocytosis Status: Acute Assessment and plan: Noted improvement in WBC's; noted at 15.6 today; down from 18 on yesterday. Continue antibiotics as ordered. Will obtain chest xray in AM; will de-escalate antibiotics soon. Current Visit: Yes (3) Acute CVA (cerebrovascular accident) Status: Acute Assessment and plan: Spoke with daughter in great detail on the issue of use of platelet aggregation therapy. Daughter reports that the patient had only been on aspirin after previous CVA. She informed me that her sister, who is a physician, does not agree with the initiation of plavix in addition to the aspirin regimen. Will advise neurology of family concerns. Current Visit: Yes Hospitalist: Subjective Interval history: Patient seen and examined; chart reviewed; no significant overnight events. Exam - Constitutional Vitals: Period Temp Pulse Resp BP Sys/Shannon Pulse Ox Last 24 Hr 97.5 F-99.0 F 52-60 14-20 108-124/47-70 93-100 General appearance: normal weight, no acute distress - Head Head exam: Present: normal inspection, normocephalic - Eye Eye exam: Present: EOMI. Absent: conjunctival injection, nystagmus Pupils: Present: ADAMARIS, normal accommodation - ENT ENT exam: Present: normal exam, normal external ear exam, normal oropharynx - Neck Neck exam: Present: normal inspection. Absent: lymphadenopathy, meningismus, thyromegaly - Respiratory Respiratory exam: Present: clear to auscultation bilaterally. Absent: rales, rhonchi, stridor, wheezes - Cardiovascular Cardiovascular exam: Present: diastolic murmur, regular rate and rhythm. Absent : carotid bruit, gallop, JVD, rubs, systolic murmur - GI/Abdominal GI/Abdominal exam: Present: normal bowel sounds, soft - Extremities Exam Extremities exam: Present: normal inspection, normal capillary refill, full ROM , other - Back Exam Back exam: Present: normal inspection - Neurological Exam Neurological exam: Present: alert, oriented X3 - Psychiatric Psychiatric exam: Present: normal affect, normal mood - Skin Skin exam: Present: normal color, warm, dry Results - Labs CBC & BMP: 07/26/16 08:07/26/16 08:09 Lab Results: I have reviewed the past 24 hour labs
--- NOTE | 2016-07-26 14:37 | Neurology Progress Note ---
Neurology - PN : Subjective Interval history: Patient seems to be doing okay. Is still have some hesitancy in his speech. No other problems reported. Requiring a significant amount of assistance. Exam (Progress Note) - Constitutional Vitals: Period Temp Pulse Resp BP Sys/Shannon Pulse Ox Last 24 Hr 97.5 F-99.0 F 54-81 14-20 108-125/47-70 93-100 Exam: GENERAL: Patient is in no acute distress. NECK: Neck is supple. There is no JVD. No carotid bruits present. No thyroid masses. CVS: First and second heart sounds are normal. There is no S3 present. Regular rate and rhythm. RESPIRATORY: Lungs are clear to auscultation without any rales or rhonchi. ABDOMEN: Soft and non-tender. Bowel sounds are present. There is no hepatosplenomegaly. EXT: There is no palpable edema. Peripheral pulses are present. Skin: No rashes Central Nervous system: General: Alert, awake Speech: Fluent Comprehension: Fair Facial expressions: Normal Cranial Nerves: CN1/Olfactory: Normal CN II/ Optic: Normal, Visual Vieira unreliable CN III, and : ADAMARIS & EOMI CN V: Normal & intact CN VII: face is symmetric CNVIII: Normal CN XI/X/XI/XII: Intact and Normal Motor: Bulk and Tone is normal. Strength in the right 2-3/5 Strength in the left 2-3/5 Sensory: Unreliable Reflexes: 1+ and symmetrical Cerebellar function: Slow finger to nose and heel to prather testing. Toes: Equivocal Gait: Cannot be tested at this time Results - Labs CBC & BMP: 07/26/16 08:09 07/26/16 08:09 Assessment and Plan (1) Encephalopathy Status: Acute Assessment and plan: This is likely multifactorial. It had resolved a good bit Current Visit: Yes (2) Acute CVA (cerebrovascular accident) Status: Acute Assessment and plan: Continue aspirin, Plavix, PT, OT and ST Consider swing bed placement Sign off please call as needed Current Visit: Yes
[2016-07-26] MEDS: DONEPEZIL 10 MG TABLET PO SCH (20:22)
[2016-07-27] MEDS: VANCOMYCIN INJ 1,000 MG in SODIUM CHLORIDE 0.9% 250 ML IV SCH (04:37)
[2016-07-27 06:04] LABS: Basophils % 0.2 % (0.0-0.8); Eosinophils # 1.5 10*3/uL (0.0-0.87); Hematocrit 33.5 VOL% (35.7-47.0); Hemoglobin 11.2 GM/DL (12.0-16.0); Immature Granulocytes % 6.2 %; Immature Granulocytes Absolute 0.72 #; Lymphocytes # 1.9 10*3/uL (1.4-4.0); Lymphocytes % 16.5 % (21.3-54.2); Mean Corpuscular HGB Conc 33.4 GM/DL (32-36); Mean Corpuscular Hemoglobin 29 PG (27-34); Mean Corpuscular Volume 86.1 FL (87-102); Mean Platelet Volume 11.1 FL (9.6-12.0); Monocytes # 1.1 10*3/uL (0.11-0.8); Monocytes % 9.3 % (1.7-12.7); NRBC # 0.02 10*3/uL; Neutrophils # 6.4 10*3/uL (1.4-7.4); Neutrophils % 54.8 % (38.7-73.9); Platelet Count 272 T/CUMM (130-400); Red Blood Count 3.89 MC/CUMM (3.8-5.5); Red Cell Distribution Width 16.1 % (9.3-17.3); White Blood Count 11.7 T/CUMM (4-12)
[2016-07-27 06:41] LABS: Band Neutrophils 3 % (0-10); Eosinophils 13 % (0-10); Hypochromasia 1+; Lymphocytes 16 % (20-55); Microcytosis Slight; Nucleated Red Blood Cells 1 (0-5); Platelet Estimate Adequate; Segmented Neutrophils 58 % (50-85); Total Cells Counted 100
[2016-07-27] MEDS: CLINDAMYCIN INJ 900 MG in PREMIX 1 EACH IV SCH ×2 (06:54→16:29)
[2016-07-27] MEDS ORDERED: MAGNESIUM HYDROXIDE SUSP 30 ML UDCUP PO PRN (07:48)
[2016-07-27] MEDS: NYSTATIN 500,000 UNIT/5 ML UDCUP SWISH/SWAL SCH ×3 (09:56→16:50)
[2016-07-27] MEDS: CLOPIDOGREL 75 MG TABLET PO SCH (09:57)
[2016-07-27] MEDS: FUROSEMIDE 40 MG/4 ML VIAL IV SCH (09:57)
[2016-07-27] MEDS: ASPIRIN EC 81 MG TABLET PO SCH (09:58)
[2016-07-27] MEDS: MEMANTINE 10 MG TABLET PO SCH ×2 (09:58→16:50)
[2016-07-27] MEDS: POTASSIUM CHLORIDE 10 MEQ TABLET PO SCH (09:58)
[2016-07-27] MEDS: MONTELUKAST 10 MG TABLET PO SCH (09:58)
[2016-07-27] MEDS: LEVOFLOXACIN INJ 500 MG in PREMIX 1 EACH IV SCH (09:58)
[2016-07-27] MEDS: amLODIPine 5 MG TABLET PO SCH (09:58)
[2016-07-27] MEDS: CALCIUM (CARBONATE)/VITAMIN D 600 MG-400 UNIT TABLET PO SCH (09:58)
[2016-07-27] MEDS: CETIRIZINE 10 MG TABLET PO SCH (09:58)
[2016-07-27] MEDS: DESITIN 4OZ/NYSTATIN 15 GRAM MIXTURE PASTE TOP SCH (09:59)
--- NOTE | 2016-07-27 12:15 | Discharge Summary ---
<Veronica Walters - Last Filed: 07/27/16 12:05> Hospital Course - Hospital Course Hospital Course: Ms. Cortés is an 86-year-old -[place] female with history of hypertension, subdural hematoma, pneumonia, and dementia that was admitted by hospital medicine on 07/20/2016 with altered mental status and lethargy. She had been treated at the care home for cough and congestion and a severe UTI and was still on antibiotics for this. She was found to be hyponatremic and hyperglycemic which was corrected with this hospital stay. She also had a cellulitis of the right leg and was started on antibiotics for this. This is resolved nicely and her leukocytosis has resolved. She will go back to the care home with clindamycin for 1 more week. She was also noted to have an acute ischemic area of her left occipital area found on brain MRI. Dr. Garcia from neurology was consulted and he recommended aspirin and Plavix. Family did not want the patient to be started on Plavix due to its side effects in her previous history of subdural hematoma. It was discussed with the daughter the possibility of recurrent stroke and she did verbalize understanding. Patient was also dehydrated with acute kidney injury upon admission and this resolved with gentle hydration. Patient did receive PT and OT and will see if we can continue this at the care home. Patient has reached maximal hospital benefit and is ready for transfer back to her care home. Patient's case was discussed with Dr. Palencia the hospitalist, Dr. Garcia the neurologist, patient' s family, nursing, and gearcase assembler. Case coordination, chart review, medicine reconciliation, and discharge paperwork all took approximately 40 minutes. I evaluated this patient and completed an independent history and physical examination. I coordinated care with OTIS Rodriguez,PAJuanC. I agree with the documentation that she provides above. 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 (2) Altered mental status Status: Resolved (3) Leukocytosis Status: Resolved (4) Acute renal failure Status: Resolved (5) Hyperosmolality and hypernatremia Status: Resolved (6) Cellulitis of right leg Status: Resolved (7) Acute CVA (cerebrovascular accident) Status: Chronic Specialty Discharge - Follow Up or Referrals Follow up with: PCP, [facility] [Other] (prn ) Discharge Plan - Discharge Data Disposition: Disch/Xfer to Snf Condition at Discharge: Stable Discharge Diet: advance to your usual diet Activity: as per physical therapy Contact your physician if you experience:: fever over 101, Redness or swelling, Nausea/Vomiting - Discharge Medications New Clindamycin HCl [Clindamycin Cap] 300 mg PO QID #28 capsule Aspirin EC Tab 81 mg PO DAILY tablet Continue Albuterol Neb [Proventil Neb] 2.5 mg RESP TX Q4H PRN PRN Reason: Shortness Of Breath/Wheezing Memantine [Namenda] 10 mg PO BID@0800,1600 guaiFENesin [Mucinex] 600 mg PO BID@0800,2000 Montelukast Tab [Singulair Tab] 10 mg PO 0800 Potassium Chloride 10 meq PO 0800 Naproxen Sodium [Aleve] 220 mg PO 0800 Acetaminophen Tab [Tylenol Tab] 650 mg PO Q4H PRN PRN Reason: FEVER>100 risperiDONE [Risperidone] 0.25 mg PO BID@0800,2000 Cetirizine Tab [ZyrTEC Tab] 10 mg PO 0800 Calcium (Carb)/Vit D 600-400 [Caltrate 600 + D] 1 tablet PO 0800 amLODIPine [Norvasc] 5 mg PO 0800 Donepezil [Aricept] 10 mg PO 2000 Furosemide Tab [Lasix Tab] 20 mg PO 0800 Discontinued Nitrofurantoin Monohyd/M-Cryst [Nitrofurantoin Bleckley-Mcr 100 mg] 100 mg PO BID @0800,1600 - Follow Up or Referral Follow Up: PCP, [facility] [Other] (prn ) - Forms/Instructions Instructions: Cellulitis (DC), Ischemic Stroke (DC), Self Care Measures After a Stroke (DC) Exam - Constitutional Vitals: Period Temp Pulse Resp BP Sys/Shannon Pulse Ox Last 24 Hr 97.5 F-99 F 52-104 14-20 113-156/50-84 95-98 Exam: 86-year-old -[place] female, no acute distress Chest clear CV regular rate and rhythm Abdomen soft nontender Extremities no edema Discharge Results Procedures and tests throughout hospitalization: Pending Orders 07/24/16 09:03 Blood Culture Routine Labs on day of discharge: Labs from last 24 hours 07/27/16 05:17 WBC 11.7 RBC 3.89 Hgb 11.2 L Hct 33.5 L MCV 86.1 L MCH 29 MCHC 33.4 RDW 16.1 Plt Count 272 MPV 11.1 Neut % (Auto) 54.8 Lymph % (Auto) 16.5 L Bleckley % (Auto) 9.3 Eos % (Auto) 13.0 H Baso % (Auto) 0.2 Neut # (Auto) 6.4 Lymph # (Auto) 1.9 Bleckley # (Auto) 1.1 H Eos # (Auto) 1.5 H Baso # (Auto) 0.0 Total Counted 100 Immature Gran % 6.2 Nucleated RBC % 0.2 Immature Gran # 0.72 Segmented Neutrophils 58 Band Neutrophils 3 Lymphocytes 16 L Monocytes 10 Eosinophils 13 H Nucleated RBCs 1 Nucleated RBCs # 0.02 Platelet Estimate Adequate Hypochromasia 1+ Microcytosis Slight Morphology Comment Preliminary micro results at discharge 07/24/16 09:03 Blood Culture - Preliminary Blood No growth at 3 days 07/24/16 09:03 Blood Culture - Preliminary Blood No growth at 3 days DS: Provider Date of admission: 07/20/16 12:55 Primary care physician: . No PCP Attending physician on admission: Scott Greenfield MD Consults: 07/20/16 15:04 Consult to Physician [CONS] Routine Comment: altered mental status Consulting Provider: Anders Garcia Person Notified: [email or web address] Date Notified: 07/21/16 Time Notified: 09:16 07/20/16 16:30 Consult to Dietitian [CONS] Routine Reason for Dietitian: Dietary Consult 07/20/16 21:12 Consult to Pharmacy [CONS] Routine Reason for Pharmacy Consult: Dose/Manage Vancomycin 07/21/16 16:17 Consult to Occupational Therapy [CONS] Routine Reason for Occupational Therapy: Evaluate and Treat Consult Comment: new cva Consult to Physical Therapy [CONS] Routine Reason for Physical Therapy: Evaluate and Treat 07/26/16 11:26 Consult to Case Mgmt/Social Srvs [CONS] Routine Reason for Case Mgmt/Social Srvs: Rehab Other Discharging clinician: LIZ Espinoza Expected date of discharge: 07/27/16 <Jeremy Palencia - Last Filed: 07/27/16 16:37> Hospital Course - Time spent with patient Time with patient DS: Greater than 30 minutes Diagnosis - Discharge Diagnosis (1) Acute CVA (cerebrovascular accident) Status: Chronic (2) Cellulitis of right leg Status: Resolved (3) Dementia Status: Chronic (4) 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
[2016-07-27 14:07] VITALS: BP 116/84
== END 2016-07-27 17:20 | DRG 64 ==
LOC: EDUNIT# → EDBD → N.ED 10:21 → N.EDINP 12:55 → SUATTDRO 12:55 → N.5E 17:08
PROVIDERS: ADMIT Internal Medicine Infectious Disease; ATTEND Family Medicine

== ENCOUNTER 2017-07-31 14:00 | Inpatient (IN) ==
[2017-07-31 15:27] LABS: Basophils % 0.4 % (0.0-0.8); Eosinophils # 0.3 10*3/uL (0.0-0.87); Eosinophils % 2.5 % (0.00-10.9); Hematocrit 44.6 VOL% (35.7-47.0); Hemoglobin 14.8 GM/DL (12.0-16.0); Immature Granulocytes % 0.7 %; Immature Granulocytes Absolute 0.07 #; Lymphocytes # 1.8 10*3/uL (1.4-4.0); Lymphocytes % 17.4 % (21.3-54.2); Mean Corpuscular HGB Conc 33.2 GM/DL (32-36); Mean Corpuscular Hemoglobin 29 PG (27-34); Mean Corpuscular Volume 87.1 FL (87-102); Mean Platelet Volume 10.4 FL (9.6-12.0); Monocytes % 9.1 % (1.7-12.7); Neutrophils # 7.3 10*3/uL (1.4-7.4); Neutrophils % 69.9 % (38.7-73.9); Platelet Count 241 T/CUMM (130-400); Red Blood Count 5.12 MC/CUMM (3.8-5.5); Red Cell Distribution Width 14.9 % (9.3-17.3); White Blood Count 10.4 T/CUMM (4-12)
[2017-07-31 15:38] LABS: PT Patient Result 10.7 SECS; Partial Thromboplastin Time 26.5 SECS (0-40)
[2017-07-31 15:49] LABS: Apearance,Urine CLEAR (Clear); Bacteria,Urine Many /HPF (Few); Bilirubin,Urine Negative (Negative); Blood, Urine Small mg/dL (Negative); Glucose,Urine (UA) Negative (Negative); Ketones,Urine Negative (Negative); Mucus,Urine Occasional /LPF (Occasional); Nitrite,Urine Positive (Negative); Protein,Urine Negative; RBC,Urine 1 /HPF (0-4); Squamous Epithelial Cell,Urine Occasional /HPF (0-10); Urine Color Yellow (Yellow); Urine Specific Gravity 1.011 (1.001-1.035); Urine Urobilinogen < 2.0 EU/DL (0.2-1.0); WBC,Urine 25 /HPF (0-6)
[2017-07-31 15:54] LABS: Alanine Aminotransferase 24 U/L (13-56); Albumin 3.1 G/DL (3.4-5.0); Alkaline Phosphatase 115 U/L (45-117); Aspartate Amino Transferase 23 U/L (0-37); Blood Urea Nitrogen 14 MG/DL (7-18); Glucose 177 MG/DL (74-106); Osmolality,Calculated 283.4 MOS/KG (273-304); Potassium 4.1 MMOL/L (3.5-5.1); Sodium 140 MMOL/L (136-145); Total Protein 6.6 G/DL (6.4-8.3)
[2017-07-31 16:04] LABS: Barbiturates Screen,Urine Negative (Negative); Benzodiazepines Screen,Urine Negative (Negative); Cannabinoid Screen,Urine Negative (Negative); Opiate Screen,Urine Negative (Negative); Phencyclidine Screen,Urine Negative (Negative)
[2017-07-31] MEDS ORDERED: LEVOFLOXACIN INJ 750 MG in PREMIX 1 EACH IV STA (16:10)
[2017-07-31] MEDS ORDERED: LABETALOL 20 MG/4 ML SYRINGE IV PRN (17:32)
[2017-07-31] MEDS ORDERED: LOPERAMIDE 2 MG CAPSULE PO PRN (17:39)
[2017-07-31] MEDS ORDERED: ALBUTEROL 2.5 MG/3 ML NEB RESP TX PRN (17:39)
[2017-07-31] MEDS ORDERED: IBUPROFEN 600 MG TABLET PO PRN (17:39)
[2017-07-31] MEDS ORDERED: ACETAMINOPHEN 325 MG TABLET PO PRN (17:39)
[2017-07-31] MEDS ORDERED: GLUCAGON 1 MG VIAL IM PRN (17:40)
[2017-07-31] MEDS ORDERED: DEXTROSE 50% 25 GM/50 ML VIAL IV PRN (17:40)
[2017-07-31] MEDS ORDERED: cefTRIAXone 1,000 MG VIAL ONE (20:10)
[2017-07-31] MEDS: BUDESONIDE 0.5 MG/2 ML NEB RESP TX SCH (20:10)
[2017-07-31] MEDS ORDERED: SODIUM CHLORIDE 0.9% 100 ML IV ONE (20:11)
[2017-07-31] MEDS: cefTRIAXone 1,000 MG in SYRINGE 1 EACH IV SCH (20:31)
[2017-07-31] MEDS: MEMANTINE 10 MG TABLET PO SCH (22:08)
[2017-07-31] MEDS: ENOXAPARIN 40 MG/0.4 ML SYRINGE SUBCUT SCH (22:08)
[2017-07-31] MEDS: SERTRALINE 50 MG TABLET PO SCH (22:08)
[2017-07-31] MEDS: DONEPEZIL 10 MG TABLET PO SCH (22:08)
[2017-07-31] MEDS: INSULIN REGULAR 100 UNIT/ML SUBCUT SCH (22:09)
[2017-08-01 05:55] LABS: Basophils % 0.2 % (0.0-0.8); Eosinophils # 0.2 10*3/uL (0.0-0.87); Eosinophils % 2.5 % (0.00-10.9); Hematocrit 41.7 VOL% (35.7-47.0); Hemoglobin 14.2 GM/DL (12.0-16.0); Immature Granulocytes % 0.7 %; Immature Granulocytes Absolute 0.06 #; Lymphocytes # 1.4 10*3/uL (1.4-4.0); Lymphocytes % 16.9 % (21.3-54.2); Mean Corpuscular HGB Conc 34.1 GM/DL (32-36); Mean Corpuscular Hemoglobin 29 PG (27-34); Mean Corpuscular Volume 85.5 FL (87-102); Mean Platelet Volume 11.2 FL (9.6-12.0); Monocytes # 0.9 10*3/uL (0.11-0.8); Monocytes % 10.4 % (1.7-12.7); Neutrophils # 5.7 10*3/uL (1.4-7.4); Neutrophils % 69.3 % (38.7-73.9); Platelet Count 242 T/CUMM (130-400); Red Blood Count 4.88 MC/CUMM (3.8-5.5); Red Cell Distribution Width 14.9 % (9.3-17.3); White Blood Count 8.2 T/CUMM (4-12)
[2017-08-01 06:11] LABS: Calcium 8.8 MG/DL (8.5-10.1); Osmolality,Calculated 284.1 MOS/KG (273-304); Potassium 4.1 MMOL/L (3.5-5.1)
[2017-08-01 06:15] LABS: Risk Ratio 3.91
[2017-08-01] MEDS: BUDESONIDE 0.5 MG/2 ML NEB RESP TX SCH ×2 (08:30→19:35)
[2017-08-01] MEDS ORDERED: ASPIRIN 325 MG TABLET PO SCH (09:00)
[2017-08-01] MEDS: INSULIN REGULAR 100 UNIT/ML SUBCUT SCH ×4 (11:02→22:21)
[2017-08-01] MEDS: POTASSIUM CHLORIDE 10 MEQ TABLET PO SCH (14:03)
[2017-08-01] MEDS: NAPROXEN 250 MG TABLET PO SCH (14:03)
[2017-08-01] MEDS: MEMANTINE 10 MG TABLET PO SCH ×2 (14:03→22:21)
[2017-08-01] MEDS: THEOPHYLLINE ER (24 HR) 400 MG TABLET PO SCH (14:04)
[2017-08-01] MEDS: CETIRIZINE 10 MG TABLET PO SCH (14:04)
[2017-08-01] MEDS: MONTELUKAST 10 MG TABLET PO SCH (14:04)
[2017-08-01] MEDS: FUROSEMIDE 20 MG TABLET PO SCH (14:04)
[2017-08-01] MEDS: PANTOPRAZOLE 40 MG TABLET PO SCH (14:04)
[2017-08-01] MEDS: amLODIPine 5 MG TABLET PO SCH (14:04)
[2017-08-01] MEDS ORDERED: LEVOFLOXACIN INJ 500 MG in PREMIX 1 EACH IV SCH (17:00)
[2017-08-01] MEDS: ENOXAPARIN 40 MG/0.4 ML SYRINGE SUBCUT SCH (22:20)
[2017-08-01] MEDS: cefTRIAXone 1,000 MG in SYRINGE 1 EACH IV SCH (22:21)
[2017-08-01] MEDS: DONEPEZIL 10 MG TABLET PO SCH (22:21)
[2017-08-01] MEDS: SERTRALINE 50 MG TABLET PO SCH (22:21)
[2017-08-02] MEDS: BUDESONIDE 0.5 MG/2 ML NEB RESP TX SCH ×2 (07:10→19:19)
[2017-08-02] MEDS: INSULIN REGULAR 100 UNIT/ML SUBCUT SCH ×4 (09:02→22:06)
[2017-08-02] MEDS: PANTOPRAZOLE 40 MG TABLET PO SCH (09:03)
[2017-08-02] MEDS: THEOPHYLLINE ER (24 HR) 400 MG TABLET PO SCH (09:03)
[2017-08-02] MEDS: CLOPIDOGREL 75 MG TABLET PO SCH (09:04)
[2017-08-02] MEDS: CETIRIZINE 10 MG TABLET PO SCH (09:04)
[2017-08-02] MEDS: MEMANTINE 10 MG TABLET PO SCH ×2 (09:04→21:54)
[2017-08-02] MEDS: MONTELUKAST 10 MG TABLET PO SCH (09:04)
[2017-08-02] MEDS: NAPROXEN 250 MG TABLET PO SCH (09:04)
[2017-08-02] MEDS: FUROSEMIDE 20 MG TABLET PO SCH (09:04)
[2017-08-02] MEDS: POTASSIUM CHLORIDE 10 MEQ TABLET PO SCH (09:04)
[2017-08-02] MEDS: amLODIPine 5 MG TABLET PO SCH (09:04)
[2017-08-02] MEDS: DONEPEZIL 10 MG TABLET PO SCH (21:54)
[2017-08-02] MEDS: SERTRALINE 50 MG TABLET PO SCH (21:54)
[2017-08-02] MEDS: ENOXAPARIN 40 MG/0.4 ML SYRINGE SUBCUT SCH (21:55)
[2017-08-02] MEDS: cefTRIAXone 1,000 MG in SYRINGE 1 EACH IV SCH (22:00)
[2017-08-03] MEDS: BUDESONIDE 0.5 MG/2 ML NEB RESP TX SCH (08:03)
[2017-08-03] MEDS: MONTELUKAST 10 MG TABLET PO SCH (09:01)
[2017-08-03] MEDS: POTASSIUM CHLORIDE 10 MEQ TABLET PO SCH (09:01)
[2017-08-03] MEDS: FUROSEMIDE 20 MG TABLET PO SCH (09:01)
[2017-08-03] MEDS: PANTOPRAZOLE 40 MG TABLET PO SCH (09:01)
[2017-08-03] MEDS: MEMANTINE 10 MG TABLET PO SCH (09:01)
[2017-08-03] MEDS: INSULIN REGULAR 100 UNIT/ML SUBCUT SCH ×2 (09:01→12:16)
[2017-08-03] MEDS: CLOPIDOGREL 75 MG TABLET PO SCH (09:02)
[2017-08-03] MEDS: THEOPHYLLINE ER (24 HR) 400 MG TABLET PO SCH (09:02)
[2017-08-03] MEDS: amLODIPine 5 MG TABLET PO SCH (09:02)
[2017-08-03] MEDS: CETIRIZINE 10 MG TABLET PO SCH (09:02)
[2017-08-03] MEDS: NAPROXEN 250 MG TABLET PO SCH (09:03)
[2017-08-03 11:45] VITALS: BP 138/92
== END 2017-08-03 14:15 | DRG 65 ==
LOC: EDBD → EDUNIT# → N.ED 14:00 → N.EDINP 16:50 → N.TELES 20:13
PROVIDERS: ADMIT Internal Medicine; ATTEND Internal Medicine